=== PATIENT | male | born 1975 | race African-American/Black ===

== ENCOUNTER 2018-12-28 09:13 | Emergency (ER) | payer OTHER ==
[~2018-12-28] VITALS: Ht 188 cm; Wt 90.7 kg
--- NOTE | 2018-12-28 09:26 | NUR ---
PT A/OX4, PRESENTS TO THE ER C/O SKIN IRRITATION ON THE SCROTUM. 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 PT DENIES PAIN, DENIES DISCHARGE FROM GLANS PENIS. PT DENIES C/P, SOB, N/V/D, DIZZINESS, HEADACHE.
--- NOTE | 2018-12-28 09:28 | NUR ---
MAGALIS BEAL AT BEDSIDE FOR MSE.
--- NOTE | 2018-12-28 09:32 | NUR ---
Patient discharged to home in stable conditon. Written and verbal after care instructions given. Patient verbalizes understanding of instructions. ALL BELONGINGS W/ PT. PT SELF-AMBULATED W/O DIFFICULTY.
[2018-12-28 09:34] VITALS: BP 152/82
== END 2018-12-28 09:35 | disposition home or self-care (01) ==
LOC: ER 09:13
DX: B37.2 Candidiasis of skin and nail (principal)
CPT/HCPCS: A4663